=== PATIENT | male | born 1965 | race African-American/Black ===

== ENCOUNTER 2018-05-18 11:27 | Outpatient (CLI) | END 2018-05-18 11:28 | disposition home or self-care (01) | LOC: FCC-LAB 11:27 | PROVIDERS: ATTEND Family Medicine | DX: I10 Essential (primary) hypertension (principal); I50.9 Heart failure, unspecified | CPT/HCPCS: 36415; 80053; 85025 ==

== ENCOUNTER 2018-06-07 09:35 | Outpatient (CLI) ==
--- NOTE | 2018-06-07 10:23 | US ---
EXAM: Thyroid ultrasound History: Follow-up thyroid nodules. Comparison: Thyroid ultrasound 06/19/2015 Technique: Multiple sonographic images through the thyroid gland were obtained. Color duplex Dopple r was used to interrogate vascular flow. Findings: The right lobe of the thyroid measures 5.7 cm x 2.5 cm x 2.9 cm and again demonstrates multiple sub-c entimeter nodules with the largest measuring 0.7 cm not significantly changed compared to the prior s tudy. The thyroid isthmus measures 0.7 cm in thickness. The left lobe of the thyroid measures 7.9 cm x 3.6 cm x 3.3 cm and again demonstrates multiple nodule s with the largest being solid measuring 4.2 cm in the inferior pole increased in size compared to th e prior study previously measuring 3.5 cm. Impression: Enlarged multinodular thyroid gland. Increasing size of dominant solid nodule within th e inferior pole of the left thyroid. Biopsy recommended.
== END 2018-06-07 09:36 | disposition home or self-care (01) ==
LOC: RAD 09:35
PROVIDERS: ATTEND Family Medicine
DX: E07.9 Disorder of thyroid, unspecified (principal)

== ENCOUNTER 2018-07-18 12:12 | Outpatient (CLI) | END 2018-07-18 12:13 | disposition home or self-care (01) | LOC: FCC-LAB 12:12 | PROVIDERS: ATTEND Family Medicine | DX: I50.9 Heart failure, unspecified (principal); I10 Essential (primary) hypertension | CPT/HCPCS: 36415; 80053 ==

== ENCOUNTER 2018-08-03 12:09 | Outpatient (CLI) | END 2018-08-03 12:10 | disposition home or self-care (01) | LOC: FCC-LAB 12:09 | PROVIDERS: ATTEND Family Medicine | DX: N17.9 Acute kidney failure, unspecified (principal) | CPT/HCPCS: 36415; 80053; 84439; 84443; 84480; 85025 ==

== ENCOUNTER 2018-10-06 09:29 | Outpatient (CLI) ==
--- NOTE | 2018-10-06 10:56 | US ---
EXAM: RENAL ULTRASOUND, BILATERAL HISTORY: Hypertension FINDINGS: Ultrasound renal, bilateral. Lal-scale ultrasound and color Doppler imaging was performe d. The right kidney measures 9.0 x 5.0 x 4.5 centimeters. The left kidney measures 8.8 x 4.6 x 4.6 centimeters. The mid to upper right kidney has a 1.5 cm cyst which could be cortical in nature or peripelvic. The re is a single septation within the cyst indicating mild complexity. The renal cortical volume and e chogenicity were otherwise unremarkable bilaterally. No evidence of hydronephrosis. The urinary bladder was poorly evaluated and appeared to have irregular wall thickening on some of th e images presented, possibly secondary to transducer position/artifact. Ureteral jets were not seen. Cannot exclude prostate enlargement IMPRESSION: 1. Mildly complex 1.5 cm right renal cortical cyst. 2. The kidneys were otherwise unremarkable. 3. Limited evaluation of the urinary bladder as described. Consider follow-up ultrasound of the uri nary bladder with better organ distension.
--- NOTE | 2018-10-06 11:10 | US ---
EXAM: Renal artery Doppler ultrasound. HISTORY: Essential primary hypertension COMPARISON: None TECHNIQUE: Renal artery Doppler ultrasound was performed. Duplex imaging was performed with color, winston-scale and Doppler imaging. FINDINGS: Technologist notes the examination is technically limited due to bowel gas shadowing artif act. The aorta and inferior vena cava are patent. The aorta measures 1.8 cm at the level of the renal art eries. Peak systolic velocity in the aorta is 95 cm/sec. The right kidney measures 9.1 cm in length. No hydronephrosis. Peak systolic velocities in the main renal artery at the ostium, midportion, and renal hilum are 115, 109, and 107 cm/sec respectively. These values are normal. Doppler wave forms are normal. The arcuate artery resistive index measures 0.49. This value is normal. Right renal vein is patent. The left kidney measures 8.9 cm in length. No hydronephrosis. Peak systolic velocities in the main renal artery at the ostium, midportion, and renal hilum are obscured , obscured , and 108 cm/sec resp ectively. Visualized velocity at the hilum is normal. Doppler wave forms are normal. The arcuate a rtery resistive index measures 0.65. This value is normal. Left renal vein is patent. IMPRESSION: 1. Right: No sonographic evidence for renal artery stenosis 2. Left: Obscuration of the left renal ostium and midportion. Examination not diagnostic.
== END 2018-10-06 09:30 | disposition home or self-care (01) ==
LOC: RAD 09:29
PROVIDERS: ATTEND Family Medicine
DX: I10 Essential (primary) hypertension (principal)

== ENCOUNTER 2018-11-04 09:28 | Outpatient (CLI) | END 2018-11-04 09:29 | disposition home or self-care (01) | LOC: CAR 09:28 | PROVIDERS: ATTEND Psychiatry & Neurology Sleep Medicine | DX: G47.33 Obstructive sleep apnea (adult) (pediatric) (principal) | CPT/HCPCS: 95810 ==

== ENCOUNTER 2018-11-11 08:55 | Outpatient (CLI) ==
--- NOTE | 2018-11-11 15:13 | MRI ---
EXAM: MRI abdomen without and with contrast HISTORY: Essential (primary) hypertension. High urine metanephrine. TECHNIQUE: Multiplanar, multisequence without and following the administration of intravenous Dotare m, 20 mL using an adrenal nodule protocol COMPARISON: CT abdomen from 08/31/2011 FINDINGS: The heart is mildly enlarged. No pericardial or pleural effusions are appreciated. There is no evidence of hepatic steatosis. No suspicious hepatic lesions are detected. A tiny simpl e cyst is noted hepatic segment II measuring 4.7 mm. Additional simple cyst in hepatic segment III i s approximate 2 mm. The spleen has normal size and signal. The gallbladder is free intraluminal jen ling defects. There is no biliary dilatation. The pancreas has normal signal and enhancement. The adrenal glands have normal signal and morphology. No mass lesions are detected along the expecte d course of the sympathetic chain ganglia. Simple acquired renal cysts are noted bilaterally. No suspicious renal lesions are evident. No uret eral pelvicaliectasis is evident. The visible intestines have normal signal caliber without evidence of obstruction or acute inflammati on. The bone marrow signal intensity is normal. IMPRESSION: 1. No adrenal nodules. 2. No lesions along expected course of the sympathetic chain ganglia. However, if there is concern for an extra adrenal lesion in the pelvis, recommend further evaluation with an MRI of the pelvis wit hout and with contrast. 3. Mild cardiomegaly. 4. Simple acquired bilateral renal cysts.
== END 2018-11-11 08:56 | disposition home or self-care (01) ==
LOC: RAD 08:55
PROVIDERS: ATTEND Family Medicine
DX: R89.9 Unspecified abnormal finding in specimens from other organs, systems and tissues (principal); R82.90 Unspecified abnormal findings in urine; I10 Essential (primary) hypertension
CPT/HCPCS: 36415; 82565

== ENCOUNTER 2025-06-03 15:56 | Observation (INO) ==
--- NOTE | 2025-06-03 16:22 | ED.PDOC ---
General [facility] ED Provider: Dr. SAGE HUBBARD MD Chief Complaint: Shortness of Air Stated Complaint: Patient is a 60-year-old male that reported to the emergency department for shortness of breath. Patient stated this has been going on for at least a week but has progressively gotten worse. Patient stated that he has a history of atrial fibrillation, CHF, CKD, and hypertension. Patient stated that he has not been taking his Xarelto for the past 2 to 3 weeks due to being out of his medication. Patient stated that since this time his shortness of breath has gotten worse. Patient stated that he is not been around any other sick contacts. Patient also stated that he has not been taking his Entresto for his CHF because he has been out as well. Patient stated that with his shortness of breath he is also have a cough. Patient stated that when he coughs up phlegm he feels better. Patient stated that he is a longtime smoker and used to smoke over a pack of cigarettes daily but now is down to 4 cigarettes daily. Patient stated that he has not had any sore throat, nausea, vomiting, dizziness, syncope, chest pain, or any other acute symptoms at the current time. Patient states that ambulation makes his symptoms worse. Patient stated that nothing makes better so far. Patient's vital signs are currently stable with an O2 sat of 97% on room air. Patient's heart rate is 75 bpm with a blood pressure of 137/98. Patient's GCS is 15. Time Seen by Provider: 06/03/25 15:57 Mode of Arrival: Walk-In Information Source: Patient Exam Limitations: No limitations Primary Care Provider: JONY GILLIS MD Nursing and Triage Documentation Reviewed and Agree: Yes Opioid Naive vs. Tolerant What is Opioid Naive?: *Opioid Naive implies the patient is not already taking opioids or not chronically receiving opioids on a daily basis. *PRN dosing is not "usually" associated with tolerance. *Patients are at higher risk of over-sedation and aspiration. What is Opioid Tolerant?: *Opioid Tolerance implies less than the expected response to an opioid. *Acquired tolerance is defined by the patient taking 60mg of oral morphine daily (or equianalgesic dose of another opioid) for 1 week or more. *Often associated with chronic pain. *May take more than usual dose to achieve desired pain control. Review of Systems Review Of Systems Constitutional: Reports No symptoms Respiratory: Reports Cough and Shortness of Breath Cardiac: Reports Edema All Other Systems: Reviewed and Negative [facility] Medical History Cellulitis Pain at 4/10. right foot> able to bear weight. Region is draining. Central 4-5mm ulcer draining abscess with 2 cm scaled, peeling erythematous cellulitis. Normal ROM of toes, web spaces look better. - Call wednesday w/ update - Abx to start today - WOund care recommended. Declined for now. Wants to see how abx work L03.90 - Cellulitis, unspecified (ICD-10) Tinea pedis Seems resolved as of 04/06/23 within toes/between toes. Now w/ abscess dorsal base of digit 4. B35.3 - Tinea pedis (ICD-10) Foot ulcer L97.509 - Non-pressure chronic ulcer of other part of unspecified foot with unspecified severity (ICD-10) Hypertension I10 - Essential (primary) hypertension (ICD-10) Sinusitis J32.9 - Chronic sinusitis, unspecified (ICD-10) Family History MATERNAL GRANDMOTHER No problems noted. Mother Lung cancer FATHER No problems noted. son No problems noted. daughter No problems noted. brother No problems noted. brother No problems noted. Sister No problems noted. Sister No problems noted. mgf No problems noted. pgm No problems noted. pgf No problems noted. Social History Smoking and tobacco status: Current every day smoker Passive smoking exposure: Yes Quit status: considering quitting Second hand smoke exposure: Yes Smoking risk assessment performed: No Alcohol intake: current Counseling given: No Substance use type: does not use Counseling given: No Lives independently: Yes Daycare: no daycare Current occupational status: employed Do you think of yourself as: straight/heterosexual Current gender identity: male Seatbelt use: always Surgical History thyroid biopsy (12/13/14) 12/13/14 Benign thyroid tissue adenomatoid nodujle. US done 12/13/14 Status post hernia repair Z98.890 - Other specified postprocedural states (ICD-10) Status post cholecystectomy Z90.49 - Acquired absence of other specified parts of digestive tract (ICD- 10) Status post appendectomy Z90.49 - Acquired absence of other specified parts of digestive tract (ICD- 10) 2D echocardiogram 12/19/17 2D echo . LV SF moderately decreased EF 30-35% global hypokinesis. LV wall thickenss concentric hypertrophy. LV Diastolic dysfunction grade 3. Restrictive pattern reversible. Physical Exam Physical Exam Appearance: Reports Well-appearing Ill-appearing: None Pain Distress: None Eyes: Reports MORAIH, EOMI and Conjunctiva clear ENT: Reports Nose normal and Oropharynx normal Neck: Supple Respiratory: Reports Airway patent, Breath sounds diminished (Patient had diminished lung sounds in the right lower quadrant.) and Respirations nonlabored Cardiovascular: Reports RRR, Pulses normal, No rub and No murmur GI/: Reports Soft, Nontender and Bowel sounds normal Musculoskeletal: Reports Normal strength, ROM intact, No calf tenderness and Edema (Patient had +2 pitting edema bilaterally in the lower extremities.) Skin: Reports Warm and Normal color Neurological: Reports Sensation intact, Motor intact, Alert and Oriented Psychiatric: Reports Affect appropriate Physician Progress Note Physician Progress Note: Patient is a 60-year-old male that reported to the emergency department for shortness of breath. Patient stated this has been going on for at least a week but has progressively gotten worse. Patient stated that he has a history of atrial fibrillation, CHF, CKD, and hypertension. Patient stated that he has not been taking his Xarelto for the past 2 to 3 weeks due to being out of his medication. Patient stated that since this time his shortness of breath has gotten worse. Patient stated that he is not been around any other sick contacts. Patient also stated that he has not been taking his Entresto for his CHF because he has been out as well. Patient stated that with his shortness of breath he is also have a cough. Patient stated that when he coughs up phlegm he feels better. Patient stated that he is a longtime smoker and used to smoke over a pack of cigarettes daily but now is down to 4 cigarettes daily. Patient stated that he has not had any sore throat, nausea, vomiting, dizziness, syncope, chest pain, or any other acute symptoms at the current time. Patient states that ambulation makes his symptoms worse. Patient stated that nothing makes better so far. Patient's vital signs are currently stable with an O2 sat of 97% on room air. Patient's heart rate is 75 bpm with a blood pressure of 137/98. Patient's GCS is 15. - Due to patient not being on his Xarelto for several weeks with a history of A- fib and current complaint of shortness of breath we will order CTA of the chest to rule out PE. - Will order EKG, troponin, BNP, and baseline labs. - Patient has +2 pitting edema bilaterally in the lower extremities. Troponin unremarkable. Patient's proBNP is 10,800. Will give IV Lasix 60 mg. - Due to patient's diminished lung sounds and shortness of breath we will give the patient IV methylprednisolone 125 mg and a DuoNeb treatment. - Patient has an SHILO on CKD. Will give slow IV maintenance fluids for gentle hydration. - EKG shows sinus rhythm with frequent ventricular paced complexes. Ventricular rate is 76 bpm. No acute STEMI noted. EKG interpreted by ER physician. - CTA of the chest showed 1. No evidence of PE. 2. Findings compatible with congestive heart failure with small bilateral pleural effusions and bilateral pulmonary edema. 3. Additional findings of fluid overload with small volume ascites and anasarca. 4. Cardiomegaly. 5. Mediastinal lymphadenopathy. This could be reactive, however recommend follow up CT chest with IV contrast to demonstrate resolution and exclude other etiologies. -([phone]) spoke to Scarlett hospitalist at [facility] who is agreed to accept this patient for acute exacerbation of CHF, acute on chronic kidney disease, and acute dyspnea. Patient's vital signs are stable at time of acceptance. Course Course 06/03/25 16:26 06/03/25 16:26 Orders, Labs, Meds: Lab Review 06/03/25 06/03/25 06/03/25 16:26 17:01 17:36 WBC 4.18 L RBC 4.32 L Hgb 13.3 L Hct 41.4 L MCV 95.8 H MCH 30.8 MCHC 32.1 RDW Coeff of Ying 16.0 H Plt Count 238 Immature Gran % (Auto) 0.2 Neut % (Auto) 58.2 Lymph % (Auto) 27.0 [place] % (Auto) 9.1 Eos % (Auto) 4.3 Baso % (Auto) 1.2 Neut # (Auto) 2.4 Lymph # (Auto) 1.1 [place] # (Auto) 0.4 Eos # (Auto) 0.2 Baso # (Auto) 0.1 Immature Gran # (Auto) 0.0 Sodium 136.6 Potassium 4.16 Chloride 110.3 H Carbon Dioxide 22.6 Anion Gap 7.86 BUN 30.4 H Creatinine 2.15 H Estimated GFR (MDRD) 38.00 BUN/Creatinine Ratio 14.13 Glucose 99.9 Lactic Acid 1.15 Calcium 8.19 L Total Bilirubin 1.13 AST 48.4 ALT 46.7 Alkaline Phosphatase 77.9 Troponin I 0.077 NT-Pro-B Natriuret Pep 73668 H Total Protein 5.37 L Albumin 2.89 L Globulin 2.48 Albumin/Globulin Ratio 1.16 D-Dimer 1098.25 H Urine Opiates Screen Negative Ur Oxycodone Screen Negative Urine Methadone Screen Negative Ur Barbiturates Screen Negative U Tricyclic Antidepress Negative Ur Phencyclidine Scrn Negative Ur Amphetamine Screen Negative U Methamphetamines Scrn Negative U Benzodiazepines Scrn Negative Urine Cocaine Screen Negative U Cannabinoids Screen Negative Influ A Molecular Assay Negative by naat Influ B Molecular Assay Negative by naat SARS CoV-2 RNA Rapid JOAN Negative Orders Category Date Time Status EKG-(ED & IP/OBS ONLY) Stat CARDIO 06/03/25 16:21 Completed NEBULIZER TREATMENT Stat CARDIO 06/03/25 16:33 Completed NPO REMINDER: IMAGING ONCE CARE 06/03/25 16:19 Completed ED CAREER AND TECHNOLOGY EDUCATION TEACHER APPLIED .ONCE EMERGENCY 06/03/25 16:20 Active CBC W/ AUTO DIFF Stat LAB 06/03/25 16:26 Completed COMPREHENSIVE METABOLIC PANEL Stat LAB 06/03/25 16:26 Completed D-DIMER Stat LAB 06/03/25 16:26 Completed DRUG SCREEN, URINE, RAPID Stat LAB 06/03/25 17:36 Completed FLU A/B MOLECULAR Stat LAB 06/03/25 17:01 Completed LACTIC ACID Stat LAB 06/03/25 16:26 Completed NT-PROBNP(ED) Stat LAB 06/03/25 16:26 Completed SARS COV-2 RNA RAPID JOAN Stat LAB 06/03/25 17:01 Completed TROPONIN I Stat LAB 06/03/25 16:26 Completed Furosemide [Lasix] Meds 06/03/25 16:22 Discontinued 60 mg IVP ONCE STA Iodixanol [Visipaque 320 mg/ml 100Ml] Meds 06/03/25 17:39 Discontinued 100 ml IVP ONCE ONE Ipratropium/Albuterol Neb [Duoneb] Meds 06/03/25 16:33 Discontinued 3 ml NEB ONCE STA Methylprednisolone Sod Succ/Pf [Solu-Medrol 125 mg] Meds 06/03/25 16:33 Discontinued 125 mg IVP ONCE ONE Sodium Chloride 0.9% [Sodium Chloride] 500 ml Meds 06/03/25 17:05 Active IV 100 mls/hr CTA CHEST PE PROTOCOL Stat RADS 06/03/25 16:18 Completed Medications Generic Name Dose Route Start Last Admin Trade Name Freq PRN Reason Stop Dose Admin Sodium Chloride 500 mls @ 100 mls/hr 06/03/25 17:05 06/03/25 18:46 Sodium Chloride IV 06/03/25 22:04 100 mls/hr .Q5H ONE Administration Discontinued Medications Generic Name Dose Route Start Last Admin Trade Name Freq PRN Reason Stop Dose Admin Albuterol/Ipratropium 3 ml 06/03/25 16:33 06/03/25 16:43 Ipratropium/Albuterol Vial.Neb NEB 06/03/25 16:34 3 ml ONCE STA Administration Furosemide 60 mg 06/03/25 16:22 06/03/25 17:03 Furosemide Inj 100 Mg/10 Ml Vial IVP 06/03/25 16:23 60 mg ONCE STA Administration Iodixanol 100 ml 06/03/25 17:39 06/03/25 17:39 Iodixanol 320 Mg/Ml 100ml IVP 06/03/25 17:40 100 ml ONCE ONE Administration Methylprednisolone Sodium Succinate 125 mg 06/03/25 16:33 06/03/25 17:03 Methylprednisolone Sod Succ/Pf 125 Mg/2 Ml Vial IVP 06/03/25 16:34 125 mg ONCE ONE Administration Vital Signs: Temp Pulse Resp BP Pulse Ox 06/03/25 16:05 97.4 F L 99 18 133/101 H 99 BANDAR Risk Score BANDAR Risk Score: Risk Score Odds of by 30D 0 0.1 (0.1-0.2) 1 0.3 (0.2-0.3) 2 0.4 (0.3-0.5) 3 0.7 (0.6-0.9) 4 1.2 (1.0-1.5) 5 2.2 (1.9-2.6) 6 3.0 (2.5-3.6) 7 4.8 (3.8-6.1) Discharge Plan Discharge Patient Disposition: PLACED OBSERVATION Discharge Problem: CHF exacerbation, Acute dyspnea, Acute kidney injury superimposed on CKD Did you review [place] EMAIL SPECIALIST for ALL controlled substances?: Not Applicable ED Provider: SAGE HUBBARD Condition: Stable
[2025-06-03 16:34] LABS: IMMATURE GRANULOCYTE # (AUTO) 0.0 (0.0-1.0); IMMATURE GRANULOCYTE % (AUTO) 0.2 % (0.0-5.0); RDW COEFFICIENT OF VARIATION 16.0 % (11.6-14.8)
[2025-06-03] MEDS: DUONEB NEB STA (16:43)
[2025-06-03 16:48] LABS: CREATININE 2.15 mg/dL (0.60-1.10)
[2025-06-03] MEDS: LASIX IVP STA (17:03)
[2025-06-03] MEDS: SOLU-MEDROL 125 MG IVP ONE (17:03)
[2025-06-03 17:31] LABS: MOLECULAR FLU A NEGATIVE BY NAAT (NEGATIVE); MOLECULAR FLU B NEGATIVE BY NAAT (NEGATIVE); SARS COV-2 RNA RAPID NAAT NEGATIVE (NEGATIVE)
[2025-06-03] MEDS: VISIPAQUE 320 MG/ML 100ML IVP ONE (17:39)
--- NOTE | 2025-06-03 18:32 | CT ---
EXAM: CTA CHEST WITH IV CONTRAST HISTORY: SOB off blood thinner for several weeks TECHNIQUE: Multi-slice transaxial helical PE protocol. Multiplanar MIP and 3D volume rendered images are provided. COMPARISON: 04/21/2025 chest radiograph FINDINGS: The heart is enlarged. Mild calcified plaques are seen within the thoracic aorta. The thyroid gland appears enlarged, however is partially obscured. Mediastinal lymphadenopathy is seen, however is difficult visualized secondary to beam hardening artifact. Right paratracheal adenopathy measures up to 2.5 cm short axis on axial image 37. The main pulmonary artery is dilated measuring 4.7 cm transverse. No evidence of pulmonary embolism is seen. Left chest pacer device is seen. No axillary adenopathy is seen. Edematous changes of the subcutaneous tissues are seen. Small volume ascites is seen at the upper abdomen. Contrast reflux into the hepatic veins. Mesenteric edema is seen throughout the upper abdomen. Minimal thoracic spondylosis is seen. Small bilateral layering pleural effusions are seen. Interlobular septal thickening is seen within the bilateral lungs. Additional patchy groundglass opacities are seen within the lower lobes. No evidence of pneumothorax is seen. :::::::::::::::::::::::::::::: IMPRESSION: 1. No evidence of PE. 2. Findings compatible with congestive heart failure with small bilateral pleural effusions and bilateral pulmonary edema. 3. Additional findings of fluid overload with small volume ascites and anasarca. 4. Cardiomegaly. 5. Mediastinal lymphadenopathy. This could be reactive, however recommend follow up CT chest with IV contrast to demonstrate resolution and exclude other etiologies. 6. Additional chronic/incidental findings as above. :::::::::::::::::::::::::::::: All CT scans are performed using dose optimization techniques as appropriate to the performed exam and include at least one of the following: Automated exposure control, adjustment of the mA and/or kV according to size, and the use of iterative reconstruction technique.
[2025-06-03 18:37] LABS: AMPHETAMINE SCREEN,URINE NEGATIVE (NEGATIVE); CANNABINOID SCREEN,URINE NEGATIVE (NEGATIVE); COCAIN SCREEN,URINE NEGATIVE (NEGATIVE); METHADONE URINE SCREEN NEGATIVE (NEGATIVE); METHAMPHETAMINES SCREEN,URINE NEGATIVE (NEGATIVE); OXYCODONE URINE SCREEN NEGATIVE (NEGATIVE); TRICYCLIC ANTIDEPRESSANTS URIN NEGATIVE (NEGATIVE)
[2025-06-03] MEDS: SODIUM CHLORIDE 500 ML IV ONE (18:46)
[2025-06-03] MEDS ORDERED: ZOFRAN SDV IVP PRN (19:17)
[2025-06-03] MEDS ORDERED: TYLENOL PO PRN (19:17)
[2025-06-03 21:08] VITALS: BMI 36.5
[2025-06-03] MEDS: ENTRESTO 24 MG-26 MG TABLET PO SCH (21:44)
[2025-06-03] MEDS: APRESOLINE PO SCH (21:44)
[2025-06-03] MEDS: XARELTO PO SCH (21:44)
[2025-06-03] MEDS: COREG PO SCH (21:45)
[2025-06-04] MEDS ORDERED: LASIX IVP SCH (00:30)
[2025-06-04] MEDS: LASIX IVP SCH ×2 (05:17→20:38)
[2025-06-04 05:35] LABS: IMMATURE GRANULOCYTE # (AUTO) 0.0 (0.0-1.0); IMMATURE GRANULOCYTE % (AUTO) 0.3 % (0.0-5.0); RDW COEFFICIENT OF VARIATION 15.9 % (11.6-14.8)
[2025-06-04 05:47] LABS: CREATININE 1.72 mg/dL (0.60-1.10)
[2025-06-04] MEDS: JARDIANCE PO SCH (08:06)
[2025-06-04] MEDS: FLOMAX PO SCH (08:07)
[2025-06-04] MEDS ORDERED: FLOMAX PO SCH (09:00)
[2025-06-04] MEDS ORDERED: NON-FORMULARY MEDICATION (Dapagliflozin Propanediol [Farxiga] 5 mg tablet) PO SCH (09:00)
--- NOTE | 2025-06-04 11:41 | PCM ---
Date of Service Date Seen by Provider: 06/04/25 Time Seen by Provider: 08:50 Admit Day/Time Admission Date: 06/03/25 Reason for Admission Chief Complaint: SHORTNESS OF BREATH Hospital Provider Hospital Provider: RAVEN COLLADO, [facility] [place] Primary Care Physician Primary Care Physician: JONY GILLIS MD History of Present Illness History of Present Illness: 60 yo male with pmh of HTN, Aflutter, CKD, CHF, and BPH presented to the ER with complaints of shortness of breath. Patient states that he has been out of some his medications for approximately 2 weeks but has been taking his lasix as prescribed. Noticed that his BLE were starting to swell approx. 1 week ago and then the shortness of breath started 2 days ago. Denies any fever, chills, n/v/d, or chest pain. Creatinine elevated at 2.15. BNP found to be 10,800. CTA completed and showed findings compatible with congestive heart failure with small bilateral pleural effusions and bilateral pulmonary edema and additional findings of fluid overload with small volume ascites and anasarca. He was given 60 mg lasix IVP and duoneb. Admitted to med/surg observation. As of this AM, patient states he is feeling some better. Per chart, he has diuresed nearly 4L. Case Discussed With Case Discussed With: Patient's case was discussed with the ER Physicians, Dr. Moscoso. [facility] Medical History Cellulitis Pain at 4/10. right foot> able to bear weight. Region is draining. Central 4-5mm ulcer draining abscess with 2 cm scaled, peeling erythematous cellulitis. Normal ROM of toes, web spaces look better. - Call wednesday w/ update - Abx to start today - WOund care recommended. Declined for now. Wants to see how abx work L03.90 - Cellulitis, unspecified (ICD-10) Tinea pedis Seems resolved as of 04/06/23 within toes/between toes. Now w/ abscess dorsal base of digit 4. B35.3 - Tinea pedis (ICD-10) Foot ulcer L97.509 - Non-pressure chronic ulcer of other part of unspecified foot with unspecified severity (ICD-10) Hypertension I10 - Essential (primary) hypertension (ICD-10) Sinusitis J32.9 - Chronic sinusitis, unspecified (ICD-10) Surgical History thyroid biopsy (12/13/14) 12/13/14 Benign thyroid tissue adenomatoid nodujle. US done 12/13/14 Status post hernia repair Z98.890 - Other specified postprocedural states (ICD-10) Status post cholecystectomy Z90.49 - Acquired absence of other specified parts of digestive tract (ICD- 10) Status post appendectomy Z90.49 - Acquired absence of other specified parts of digestive tract (ICD- 10) 2D echocardiogram 12/19/17 2D echo BH. LV SF moderately decreased EF 30-35% global hypokinesis. LV wall thickenss concentric hypertrophy. LV Diastolic dysfunction grade 3. Restrictive pattern reversible. Family History MATERNAL GRANDMOTHER No problems noted. Mother Lung cancer FATHER No problems noted. son No problems noted. daughter No problems noted. brother No problems noted. brother No problems noted. Sister No problems noted. Sister No problems noted. mgf No problems noted. pgm No problems noted. pgf No problems noted. Social History Smoking and tobacco status: Current every day smoker Passive smoking exposure: Yes Quit status: considering quitting Second hand smoke exposure: Yes Smoking risk assessment performed: No Alcohol intake: current Counseling given: No Details: Drinks on Holidays Substance use type: does not use Counseling given: No Lives independently: Yes Daycare: no daycare Number of children: 2 (Boy and a girl) Highest education level completed: Associate degree: occupational, technical, vocational program Current occupational status: employed Do you think of yourself as: straight/heterosexual Current gender identity: male Seatbelt use: always Allergies Allergies Allergy/AdvReac Type Severity Reaction Status Date / Time No Known Allergies Allergy Verified 06/03/25 16:11 Current Medications Home Medications Acetaminophen (Acetaminophen 325 Mg Tablet) 650 mg PO Q4H PRN PRN Reason: Mild Pain Carvedilol (Carvedilol 3.125 Mg Tablet) 1.566 mg PO BIDWM2 ALLIE Last Admin: 06/04/25 08:03 Dose: 1.566 mg Empagliflozin (Empagliflozin 10 Mg Tablet) 10 mg PO QAM [facility] Last Admin: 06/04/25 08:06 Dose: 10 mg Furosemide (Furosemide Inj 20 Mg/2 Ml Vial) 20 mg IVP Q8HR [facility] Last Admin: 06/04/25 05:17 Dose: 20 mg Hydralazine HCl (Hydralazine Hcl 50 Mg Tablet) 100 mg PO TID [facility] Last Admin: 06/04/25 08:06 Dose: 100 mg Ondansetron HCl (Ondansetron Hcl/Pf 4 Mg/2 Ml Sdv) 4 mg IVP Q6H PRN PRN Reason: Nausea / Vomiting Rivaroxaban (Rivaroxaban 10 Mg Tablet) 20 mg PO QPM [facility] Last Admin: 06/03/25 21:44 Dose: 20 mg Sacubitril/Valsartan (Sacubitril/Valsartan 1 Each Tablet) 1 each PO BID [facility] Last Admin: 06/04/25 08:06 Dose: 1 each Tamsulosin HCl (Tamsulosin Hcl 0.4 Mg Cap.Er.24h) 0.4 mg PO DAILY [facility] Last Admin: 06/04/25 08:07 Dose: 0.4 mg nitroglycerin 0.4 mg sublingual tablet 0.4 mg sublingual Q5M PRN chest pain 11/13/20 [History Confirmed 06/03/25] ergocalciferol (vitamin D2) 1,250 mcg (50,000 unit) capsule 1,250 mcg PO QMONTH #4 caps 04/06/23 [Rx Confirmed 06/03/25] dapagliflozin propanediol 5 mg tablet (Farxiga) 5 mg PO QAM #90 tabs 10/19/24 [Rx Confirmed 06/03/25] oxymetazoline 0.05 % nasal spray (Nasal Decongestant (oxymetazoline)) 2 spray intranasal Q12H PRN nasal congestion 10/19/24 [History Confirmed 06/03/25] rivaroxaban 20 mg tablet (Xarelto) 20 mg PO QDAY #90 tabs 10/19/24 [Rx Confirmed 06/03/25] tamsulosin 0.4 mg capsule 0.4 mg PO QDAY #30 caps 10/19/24 [Rx Confirmed 06/03/25] sacubitril 24 mg-valsartan 26 mg tablet (Entresto) 1 tab PO BID #30 tabs 12/05/24 [Rx Confirmed 06/03/25] furosemide 40 mg tablet 40 mg PO DAILY edema 30 days #30 tab-caps 03/20/25 [Rx Confirmed 06/03/25] carvedilol 3.125 mg tablet 1.566 mg (0.5011 x 3.125 mg) PO BID #180 tabs 03/22/25 [Rx Confirmed 06/03/25] hydralazine 50 mg tablet 100 mg (2 x 50 mg) PO TID #90 tab-caps 03/22/25 [Rx Confirmed 06/03/25] Opioid Naive vs. Tolerant Does Patient Take Opioids?: No Is Patient Opioid Naive?: Yes What is Opioid Naive?: *Opioid Naive implies the patient is not already taking opioids or not chronically receiving opioids on a daily basis. *PRN dosing is not "usually" associated with tolerance. *Patients are at higher risk of over-sedation and aspiration. Is Patient Opioid Tolerant?: No What is Opioid Tolerant?: *Opioid Tolerance implies less than the expected response to an opioid. *Acquired tolerance is defined by the patient taking 60mg of oral morphine daily (or equianalgesic dose of another opioid) for 1 week or more. *Often associated with chronic pain. *May take more than usual dose to achieve desired pain control. Review of Systems Constitutional: Reports No symptoms; Denies Fever, Chills or Weakness Head: Reports Normocephalic Eyes: Reports No symptoms Ears: Reports No symptoms Nose: Reports No symptoms Mouth: Reports No symptoms Throat: Reports No symptoms Cardiovascular: Reports Edema; Denies Chest pain or Palpitations Respiratory: Reports Shortness of air; Denies Cough Gastrointestinal: Reports No symptoms; Denies Nausea, Vomiting or Diarrhea Genitourinary: Reports No Symptoms Musculoskeletal: Reports No symptoms Endocrine: Reports No symptoms Hematology: Reports No symptoms Immunology: Reports No symptoms Neurological: Reports No symptoms Psychiatric: Reports No symptoms Physical examination Most Recent Vital Signs: Most Recent Vital Signs Temperature 97.6 F 06/04/25 10:00 Temperature Source Temporal Artery Scan 06/04/25 10:00 Temperature Source Infrared 06/03/25 16:05 Pulse Rate 64 06/04/25 10:00 Respiratory Rate 16 06/04/25 10:00 Blood Pressure 113/83 06/04/25 10:00 Blood Pressure Mean 93 06/04/25 10:00 Blood Pressure Left Arm 159/102 06/03/25 19:40 Blood Pressure Location Left Arm 06/04/25 10:00 Blood Pressure Position Supine 06/04/25 02:00 O2 Sat by Pulse Oximetry 97 06/04/25 10:00 Oxygen Delivery Method Room Air 06/04/25 10:49 Height 5 ft 5 in 06/03/25 19:40 Weight 97.9 kg 06/04/25 05:34 Telemetry Type Remote Telemetry 06/04/25 01:00 Telemetry Monitoring Continues 06/04/25 01:00 Telemetry Heart Rate 61 06/04/25 01:00 Telemetry SPO2 99 03/19/25 19:00 Telemetry Strip Reading V-PACED 06/04/25 01:00 Appearance: Positive No Apparent Distress and Alert and Oriented x3 Skin: Positive Warm and Good Turgor HEENT: Positive Normocephalic and PERRLA Neck: Positive Supple and Midline Trachea Chest/Lungs: Positive Symmetrical With Equal Breath Sounds and Clear to Auscultation Bilaterally (diminished); Negative Rales, Rhonci or Wheezes Heart: Positive RRR, Pulses Normal, No S3 Auscultated and No S4 Auscultated GI/: Positive Soft, Nontender, Bowel Sounds Normal and No Distention Musculoskeletal: Positive Not Examined Extremities: Positive Edema (+3 pitting BLE), Intact Peripheral Pulses, Stable Joints Without Laxity and Good ROM in All Joints Neurological: Positive Sensation Intact, Motor intact, Reflexes Intact, Alert, Oriented and Muscle Strength 5/5 in Upper and Lower Extremities Bilaterally Labs This Visit Labs This Visit: Labs This Visit 06/03/25 06/03/25 06/03/25 16:26 17:01 17:36 WBC 4.18 L RBC 4.32 L Hgb 13.3 L Hct 41.4 L MCV 95.8 H MCH 30.8 MCHC 32.1 RDW Coeff of Ying 16.0 H Plt Count 238 Immature Gran % (Auto) 0.2 Neut % (Auto) 58.2 Lymph % (Auto) 27.0 [place] % (Auto) 9.1 Eos % (Auto) 4.3 Baso % (Auto) 1.2 Neut # (Auto) 2.4 Lymph # (Auto) 1.1 [place] # (Auto) 0.4 Eos # (Auto) 0.2 Baso # (Auto) 0.1 Immature Gran # (Auto) 0.0 Sodium 136.6 Potassium 4.16 Chloride 110.3 H Carbon Dioxide 22.6 Anion Gap 7.86 BUN 30.4 H Creatinine 2.15 H Estimated GFR (MDRD) 38.00 BUN/Creatinine Ratio 14.13 Glucose 99.9 Lactic Acid 1.15 Calcium 8.19 L Total Bilirubin 1.13 AST 48.4 ALT 46.7 Alkaline Phosphatase 77.9 Troponin I 0.077 NT-Pro-B Natriuret Pep 31720 H Total Protein 5.37 L Albumin 2.89 L Globulin 2.48 Albumin/Globulin Ratio 1.16 D-Dimer 1098.25 H Urine Opiates Screen Negative Ur Oxycodone Screen Negative Urine Methadone Screen Negative Ur Barbiturates Screen Negative U Tricyclic Antidepress Negative Ur Phencyclidine Scrn Negative Ur Amphetamine Screen Negative U Methamphetamines Scrn Negative U Benzodiazepines Scrn Negative Urine Cocaine Screen Negative U Cannabinoids Screen Negative Influ A Molecular Assay Negative by naat Influ B Molecular Assay Negative by naat SARS CoV-2 RNA Rapid JOAN Negative 06/04/25 05:20 WBC 3.06 L RBC 4.95 Hgb 15.0 Hct 47.4 D MCV 95.8 H MCH 30.3 MCHC 31.6 L RDW Coeff of Ying 15.9 H Plt Count 255 Immature Gran % (Auto) 0.3 Neut % (Auto) 73.9 Lymph % (Auto) 21.9 [place] % (Auto) 3.6 Eos % (Auto) 0.0 Baso % (Auto) 0.3 Neut # (Auto) 2.3 Lymph # (Auto) 0.7 [place] # (Auto) 0.1 L Eos # (Auto) 0.0 Baso # (Auto) 0.0 Immature Gran # (Auto) 0.0 Sodium 138.1 Potassium 4.32 Chloride 107.8 H Carbon Dioxide 27.6 Anion Gap 7.02 BUN 29.2 H Creatinine 1.72 H Estimated GFR (MDRD) 49.00 BUN/Creatinine Ratio 16.97 Glucose 118.1 H Lactic Acid Calcium 8.59 Total Bilirubin 1.19 AST 41.2 ALT 44.4 Alkaline Phosphatase 74.4 Troponin I NT-Pro-B Natriuret Pep Total Protein 5.61 L Albumin 3.04 L Globulin 2.57 Albumin/Globulin Ratio 1.18 D-Dimer Urine Opiates Screen Ur Oxycodone Screen Urine Methadone Screen Ur Barbiturates Screen U Tricyclic Antidepress Ur Phencyclidine Scrn Ur Amphetamine Screen U Methamphetamines Scrn U Benzodiazepines Scrn Urine Cocaine Screen U Cannabinoids Screen Influ A Molecular Assay Influ B Molecular Assay SARS CoV-2 RNA Rapid JOAN Imaging Imaging: EXAM: AP CHEST HISTORY: Shortness of breath. COMPARISON: Chest x-ray 03/18/2025 FINDINGS: Cardiomediastinal silhouette is enlarged with stable lead wires. There is no pneumothorax or effusion. There is no consolidation, nodule or mass. There is minimal interstitial ground-glass/pulmonary vascular indistinctness. The osseous structures demonstrate degenerative disease. IMPRESSION: Stable cardiomegaly with interstitial ground-glass/pulmonary vascul ar indistinctness suggestive of mild vascular congestion/edema. EXAM: CTA CHEST WITH IV CONTRAST HISTORY: SOB off blood thinner for several weeks TECHNIQUE: Multi-slice transaxial helical PE protocol. Multiplanar MIP and 3D volume rendered images are provided. COMPARISON: 04/21/2025 chest radiograph FINDINGS: The heart is enlarged. Mild calcified plaques are seen within the thoracic aorta. The thyroid gland appears enlarged, however is partially obscured. Mediastinal lymphadenopathy is seen, however is difficult visualized secondary to beam hardening artifact. Right paratracheal adenopathy measures up to 2.5 cm short axis on axial image 37. The main pulmonary artery is dilated measuring 4.7 cm transverse. No evidence of pulmonary embolism is seen. Left chest pacer device is seen. No axillary adenopathy is seen. Edematous changes of the subcutaneous tissues are seen. Small volume ascites is seen at the upper abdomen. Contrast reflux into the hepatic veins. Mesenteric edema is seen throughout the upper abdomen. Minimal thoracic spondylosis is seen. Small bilateral layering pleural effusions are seen. Interlobular septal thickening is seen within the bilateral lungs. Additional patchy groundglass opacities are seen within the lower lobes. No evidence of pneumothorax is seen. IMPRESSION: 1. No evidence of PE. 2. Findings compatible with congestive heart failure with small bilateral pleural effusions and bilateral pulmonary edema. 3. Additional findings of fluid overload with small volume ascites and anasarca. 4. Cardiomegaly. 5. Mediastinal lymphadenopathy. This could be reactive, however recommend follow up CT chest with IV contrast to demonstrate resolution and exclude other etiologies. 6. Additional chronic/incidental findings as above. Review Statement Review Statement: I have independently reviewed and interpreted the labs/EKGs/imaging that were ordered by the ER provider. I have reviewed all outside records that are available currently in our EMR including imaging/notes/labs from previous visits. Plan Plan: 1. HFrEF exacerbation with ascites and anasarca - last echo 04/05/25 EF 40%, lasix 20 mg Q8H, I&O, daily weight, 1800 fluid restriction, has been referred to [facility] by PCP - will have case management follow-up on this, resume home medications 2. CKD - worse than baseline, like due to overload, improving, monitor 3. HTN - chronic, continue home medications 4. BPH - chronic, continue home medications 5. Aflutter - not in RVR, continue home medications DVT Prophylaxis: Xarelto Time Spent: Greater than 80 minutes spent with patient, 50% of the time spent w ith this patient was devoted to counseling and coordination of care. [facility] minutes spent discussing advance care planning. Disposition: Admit to: Med/Surg Observation Full Code Discussed Plan of Care with Dr. Gerald Shane. Medications Medication Orders: Medications Ordered Category Date Time Status Acetaminophen [Tylenol] Meds 06/03/25 19:17 Active 650 mg PO Q4H PRN Carvedilol [Coreg] Meds 06/03/25 21:00 Active 1.566 mg PO BIDWM2 Empaglifozin [Jardiance] Meds 06/04/25 09:00 Active 10 mg PO QAM Furosemide [Lasix] Meds 06/04/25 05:00 Active 20 mg IVP Q8HR Hydralazine HCl [Apresoline] Meds 06/03/25 21:00 Active 100 mg PO TID Ondansetron HCl/Pf [Zofran Sdv] Meds 06/03/25 19:17 Active 4 mg IVP Q6H PRN Rivaroxaban [Xarelto] Meds 06/03/25 21:00 Active 20 mg PO QPM Sacubitril/Valsartan [Entresto 24 mg-26 mg Tablet] Meds 06/03/25 21:00 Active 1 each PO BID Tamsulosin HCl [Flomax] Meds 06/04/25 09:00 Active 0.4 mg PO DAILY
[2025-06-05 05:34] LABS: IMMATURE GRANULOCYTE # (AUTO) 0.0 (0.0-1.0); IMMATURE GRANULOCYTE % (AUTO) 0.3 % (0.0-5.0); RDW COEFFICIENT OF VARIATION 16.1 % (11.6-14.8)
[2025-06-05 05:50] LABS: CREATININE 1.39 mg/dL (0.60-1.10)
--- NOTE | 2025-06-05 09:32 | CT ---
EXAM: CT HEAD WITHOUT CONTRAST. HISTORY: Vision loss and nine. COMPARISON: None. TECHNIQUE: Multiple axial images of the brain were obtained from the skull base through the vertex without intravenous contrast. Multiplanar reformats were provided. FINDINGS: There is no intracranial hemorrhage or extraaxial collection. The schilling-white differentiation is maintained without evidence for acute large vascular territory infarction. There are areas of periventricular and subcortical white matter low attenuation in both cerebral hemispheres. The cesar ical sulci and basal cisterns are well visualized. There is no hydrocephalus, mass effect, or midline shift. Moderate mucosal thickening with air-fluid level noted in the right maxillary sinus. Small amount of mucus in the left maxillary, right frontal and right sphenoid sinuses. Mild ethmoid sinus mucosal thickening. The mastoid air cells are clear. The calvarium is intact. IMPRESSION: 1. No acute intracranial hemorrhage or large vascular territory infarction. 2. Nonspecific white matter changes, likely age indeterminate small vessel ischemic changes. 3. Sinusitis. All CT scans are performed using dose optimization techniques as appropriate to the performed exam and include at least one of the following: Automated exposure control, adjustment of the mA and/or kV according to size, and the use of iterative reconstruction technique.
--- NOTE | 2025-06-05 09:47 | DCSUM ---
Admission Date Admission Date: 06/03/25 Discharge Date Discharge Date: 06/05/25 Admission Diagnosis Admission Diagnosis: 1. HFrEF exacerbation with ascites and anasarca 2. CKD 3. HTN 4. BPH 5. Aflutter Discharge Diagnosis Discharge Diagnosis: 1. HFrEF exacerbation with ascites and anasarca - Improved 2. CKD - back to baseline following diuresis 3. HTN - chronic, stable 4. BPH - chronic, stable 5. Aflutter - chronic, stable Hospital Provider Hospital Provider: RAVEN COLLADO, [facility] [place] Primary Care Physician Primary Care Physician: JONY GILLIS MD Summary of History and Physical Summary of History and Physical: 60 yo male with pmh of HTN, Aflutter, CKD, CHF, and BPH presented to the ER with complaints of shortness of breath. Patient states that he has been out of some his medications for approximately 2 weeks but has been taking his lasix as prescribed. Noticed that his BLE were starting to swell approx. 1 week ago and then the shortness of breath started 2 days ago. Denies any fever, chills, n/v/d, or chest pain. Creatinine elevated at 2.15. BNP found to be 10,800. CTA completed and showed findings compatible with congestive heart failure with small bilateral pleural effusions and bilateral pulmonary edema and additional findings of fluid overload with small volume ascites and anasarca. He was given 60 mg lasix IVP and duoneb. Admitted to med/surg observation. As of this AM, patient states he is feeling some better. Per chart, he has diuresed nearly 4L. Hospital Course Subjective: During stay, patient was diuresed with lasix 20 mg Q8H IVP. Implemented strict I&O, daily weights, and 1800 mL fluid restriction. Patient diuresed a total of 10.5L. Denies any further shortness of breath. Did not require oxygen during duration of stay. Edema is much improved. PCP had referred to [facility] but patient had not received appointment yet. telephone lineworker resubmitted referral and patient has an appointment this Wednesday. Renal function was worse than baseline. Following diuresis he is back down to his normal limits. BP remained stable and hydralazine was held during stay. Stopped at this time. PCP to follow and potentially resume. No further changes to home medications. Following rounds this morning, patient had complaints of blurry vision out of his R eye. No other deficits present. CT head obtained and negative for acute etiology. Determined bright sunlight in his room caused the vision change. Since then has resolved and has had no other complaints. Appearance: Pleasant, No Apparent Distress and Alert HEENT: MMM, Supple and No JVD CVS: No Murmur, No Rubs and No Gallop Abdomen: Soft, Non-Tender and No Distention Respiratory: No Dyspnea Extremities: Other (edema improved, +1 BLE) Vital Signs: Most Recent Vital Signs Temperature 96.9 F L 06/05/25 05:19 Temperature Source Temporal Artery Scan 06/05/25 05:19 Temperature Source Infrared 06/03/25 16:05 Pulse Rate 60 06/05/25 05:19 Respiratory Rate 20 06/05/25 05:19 Blood Pressure 113/84 06/05/25 05:19 Blood Pressure Mean 93 06/05/25 05:19 Blood Pressure Left Arm 159/102 06/03/25 19:40 Blood Pressure Location Right Arm 06/05/25 05:19 Blood Pressure Position Supine 06/05/25 05:19 O2 Sat by Pulse Oximetry 100 06/05/25 05:19 Oxygen Delivery Method Room Air 06/05/25 08:00 Height 5 ft 5 in 06/03/25 19:40 Weight 91.6 kg 06/05/25 05:20 Telemetry Type Remote Telemetry 06/05/25 01:00 Telemetry Monitoring Continues 06/05/25 01:00 Irregular Telemetry Rate (Approximate) 60-70 BPM 06/04/25 13:00 Telemetry Heart Rate 60 06/05/25 01:00 Telemetry SPO2 99 03/19/25 19:00 EKG QRS Interval 0.09 06/05/25 01:00 Telemetry Strip Reading PACED WITH UNDERLYING A-FIB 06/05/25 01:00 Imaging: EXAM: AP CHEST HISTORY: Shortness of breath. COMPARISON: Chest x-ray 03/18/2025 FINDINGS: Cardiomediastinal silhouette is enlarged with stable lead wires. There is no pneumothorax or effusion. There is no consolidation, nodule or mass. There is minimal interstitial ground-glass/pulmonary vascular indistinctness. The osseous structures demonstrate degenerative disease. IMPRESSION: Stable cardiomegaly with interstitial ground-glass/pulmonary vascular indistinctness suggestive of mild vascular congestion/edema. EXAM: CTA CHEST WITH IV CONTRAST HISTORY: SOB off blood thinner for several weeks TECHNIQUE: Multi-slice transaxial helical PE protocol. Multiplanar MIP and 3D volume rendered images are provided. COMPARISON: 04/21/2025 chest radiograph FINDINGS: The heart is enlarged. Mild calcified plaques are seen within the thoracic aorta. The thyroid gland appears enlarged, however is partially obscured. Mediastinal lymphadenopathy is seen, however is difficult visualized secondary to beam hardening artifact. Right paratracheal adenopathy measures up to 2.5 cm short axis on axial image 37. The main pulmonary artery is dilated measuring 4.7 cm transverse. No evidence of pulmonary embolism is seen. Left chest pacer device is seen. No axillary adenopathy is seen. Edematous changes of the subcutaneous tissues are seen. Small volume ascites is seen at the upper abdomen. Contrast reflux into the hepatic veins. Mesenteric edema is seen throughout the upper abdomen. Minimal thoracic spondylosis is seen. Small bilateral layering pleural effusions are seen. Interlobular septal thickening is seen within the bilateral lungs. Additional patchy groundglass opacities are seen within the lower lobes. No evidence of pneumothorax is seen. IMPRESSION: 1. No evidence of PE. 2. Findings compatible with congestive heart failure with small bilateral pleural effusions and bilateral pulmonary edema. 3. Additional findings of fluid overload with small volume ascites and anasarca. 4. Cardiomegaly. 5. Mediastinal lymphadenopathy. This could be reactive, however recommend follow up CT chest with IV contrast to demonstrate resolution and exclude other etiologies. 6. Additional chronic/incidental findings as above. Lab Results Last 24 Hours: 06/05/25 05:14 WBC 6.52 RBC 5.02 Hgb 15.3 Hct 47.6 MCV 94.8 H MCH 30.5 MCHC 32.1 RDW Coeff of Ying 16.1 H Plt Count 259 Immature Gran % (Auto) 0.3 Neut % (Auto) 69.0 Lymph % (Auto) 21.2 Edwards % (Auto) 7.2 Eos % (Auto) 1.7 Baso % (Auto) 0.6 Neut # (Auto) 4.5 Lymph # (Auto) 1.4 Edwards # (Auto) 0.5 Eos # (Auto) 0.1 Baso # (Auto) 0.0 Immature Gran # (Auto) 0.0 Sodium 138.2 Potassium 3.54 Chloride 105.1 Carbon Dioxide 30.9 H Anion Gap 5.74 BUN 26.7 H Creatinine 1.39 H Estimated GFR (MDRD) 63.00 BUN/Creatinine Ratio 19.20 Glucose 85.6 Calcium 8.46 Total Bilirubin 1.14 AST 32.7 ALT 36.8 Alkaline Phosphatase 69.8 Total Protein 5.35 L Albumin 2.88 L Globulin 2.47 Albumin/Globulin Ratio 1.16 Discharge Instructions Discharge Planning: Discharge Planning > 40 minutes If patient is discharged with left ventricular systolic dysfunction: no Discharged with a beta marti? [] If no, why not? [] Discharged with an khoa/arb? [] If no, why not? [] Discharge Medications: Medications at Discharge (Home Meds & RX) nitroglycerin 0.4 mg sublingual tablet 0.4 mg sublingual Q5M PRN chest pain 11/13/20 ergocalciferol (vitamin D2) 1,250 mcg (50,000 unit) capsule 1,250 mcg PO QMONTH #4 caps 04/06/23 dapagliflozin propanediol 5 mg tablet (Farxiga) 5 mg PO QAM #90 tabs 10/19/24 oxymetazoline 0.05 % nasal spray (Nasal Decongestant (oxymetazoline)) 2 spray intranasal Q12H PRN nasal congestion 10/19/24 rivaroxaban 20 mg tablet (Xarelto) 20 mg PO QDAY #90 tabs 10/19/24 tamsulosin 0.4 mg capsule 0.4 mg PO QDAY #30 caps 10/19/24 sacubitril 24 mg-valsartan 26 mg tablet (Entresto) 1 tab PO BID #30 tabs 12/05/24 furosemide 40 mg tablet 40 mg PO DAILY edema 30 days #30 tab-caps 03/20/25 carvedilol 3.125 mg tablet 1.566 mg (0.5011 x 3.125 mg) PO BID #180 tabs 03/22/25 Discharge Plan Discharge Discharge Orders: Discharge Patient (ONCE); Ordered 06/05/25 Ordered By: DAYSI STINSON Activity Restrictions/Additional Instructions: Diagnosis: Heart Failure Exacerbation Diet: Low salt, No more then 2L of fluids daily Activity as tolerated. Medications: No changes Follow-up with your primary care doctor and cardiology as scheduled. Recommend seeing an project development coordinator if your vision continues to cause you problems. Instructions: Heart Failure (GEN), Fluid Restriction (GEN) Patient Disposition: HOME SELF-CARE Prescriptions: Continued sacubitril-valsartan [Entresto] 24-26 mg tablet 1 tab PO BID Qty: 30 5RF Patient Comments: Pt states he has not had this in about 3 weeks 06/03/25 furosemide 40 mg tablet 40 mg PO DAILY 30 Days Qty: 30 0RF nitroglycerin 0.4 mg tablet, sublingual 0.4 mg sublingual Q5M PRN (Reason: chest pain) Rx Instructions: do not exceed 3 doses per episode carvedilol 3.125 mg tablet 1.566 mg PO BID Qty: 180 1RF Rx Instructions: 1/2 tablet BID (Bradycardia 45 in office). ergocalciferol (vitamin D2) 1,250 mcg (50,000 unit) capsule 1,250 mcg PO QMONTH Qty: 4 1RF oxymetazoline [Nasal Decongestant (oxymetazl)] 0.05 % spray,non-aerosol 2 spray intranasal Q12H PRN (Reason: nasal congestion) dapagliflozin propanediol [Farxiga] 5 mg tablet 5 mg PO QAM Qty: 90 1RF Xarelto 20 mg tablet 20 mg PO QDAY Qty: 90 5RF Patient Comments: Pt states he has not had this in about 3 weeks 06/03/25 Rx Instructions: must administer with evening meal tamsulosin 0.4 mg capsule 0.4 mg PO QDAY Qty: 30 5RF Patient Comments: Pt states he has not had in about 1 year 06/03/25 Discontinued hydralazine 50 mg tablet 100 mg PO TID Qty: 90 5RF Did you review [place] [employer] for ALL controlled substances?: No Discussed opioids are addictive and Narcan is available by prescription or from pharmacy.: No Condition: Stable Referrals: COTY MEDINA [REFERRING, UNKNOWN] - 06/08/25 8:30 am AFSANEH SINGH MD [STAFF PHYSICIAN, Family Practice] - 06/08/25 2:00 pm
[2025-06-05 14:24] VITALS: BP 118/85; PULSE 67; RESP 16; TEMP 97.9
== END 2025-06-05 14:40 | disposition home or self-care (01) ==
LOC: MEDSURG B 15:56 → ED 15:56 → MEDSURG B 19:45
PROVIDERS: ADMIT Hospitalist; ATTEND Nurse Practitioner Family
DX: Z51.81 Encounter for therapeutic drug level monitoring; N18.9 Chronic kidney disease, unspecified; Z79.01 Long term (current) use of anticoagulants; I48.92 Unspecified atrial flutter; Z20.822 Contact with and (suspected) exposure to COVID-19; I50.20 Unspecified systolic (congestive) heart failure; N17.9 Acute kidney failure, unspecified; I10 Essential (primary) hypertension; Z91.198 Patient's noncompliance with other medical treatment and regimen for other reason; Z79.899 Other long term (current) drug therapy; R18.8 Other ascites; F17.210 Nicotine dependence, cigarettes, uncomplicated; N40.0 Benign prostatic hyperplasia without lower urinary tract symptoms